=== PATIENT | female | born 1975 | race Caucasian/White ===

== ENCOUNTER → 2016-08-04 | Outpatient (CLI) | payer BC ==
--- NOTE | 2016-08-04 15:19 | MAM ---
History: Palpable ridge left breast. History of fibroadenomas. DATE OF SERVICE: 08/04/2016 Services provided: Full field digital diagnostic bilateral mammography. CAD, the images were reviewed with R2 computer aided detection. Directed Limited left breast sonography FINDINGS: Routine views are obtained and compared with 2016 exam. Mammographic and sonographic evaluation of the palpable ridge has been performed previously, 2006, 2012, 2014 and 2016. Scattered glandular parenchymal pattern is shown. Spot films of the region in question are obtained. No mammographic abnormality is noted. Mammographic glandular pattern is stable bilaterally since 2012. Physical examination reveals a palpable ridge in the left breast at 12:00. Sonographically normal fibroglandular tissue is shown with no suspicious finding. IMPRESSION: Benign exam. Region of clinical concern corresponds to a ridge of normal fibroglandular tissue. Recommendation: Routine annual mammography. Findings and recommendations were discussed with the patient. BIRAD CATEGORY: 2 BENIGN Electronically signed by: Bree Anaya MD 08/04/2016 3:18 PM CDT Workstation: [id number]
== END | disposition home or self-care (01) ==
LOC: MAMMO 13:07
PROVIDERS: ATTEND Surgery
DX: N63 Unspecified lump in breast (principal)